=== PATIENT | male | born 1955 | race Two or more races ===

== ENCOUNTER 2022-07-06 08:48 | Day surgery (SDC) | payer MEDICARE, BC ==
[~2022-07-06] VITALS: Ht 162.6 cm; Wt 75.6 kg
[2022-07-06 09:10] VITALS: BP 139/86
[2022-07-06] MEDS ORDERED: albumin 25% 100mL bottle x 1 IV PRN (09:10)
[2022-07-06] MEDS ORDERED: normal saline 1000ml 1,000 ML IV PRN (09:15)
[2022-07-06] MEDS ORDERED: MULT-955 PO (09:23)
[2022-07-06] MEDS ORDERED: AMLO10TA13 PO (09:23)
[2022-07-06] MEDS ORDERED: LEVO25TA7 PO (09:23)
[2022-07-06 09:57] LABS: BASOPHILS % (AUTO) 0.1 % (0-1); EOSINOPHILS # (AUTO) 0.3 X10'3 (0-0.9); EOSINOPHILS % (AUTO) 3.6 % (0-6); HEMATOCRIT 40.6 % (42.0-52.0); HEMOGLOBIN 13.8 g/dl (14.0-17.9); LYMPHOCYTES # (AUTO) 1.1 X10'3 (1.1-4.8); LYMPHOCYTES % (AUTO) 13.5 % (21-51); MEAN CORPUSCULAR HEMOGLOBIN 29.1 PG (27.0-31.0); MEAN CORPUSCULAR HGB CONC 34.1 g/dL (33.0-36.5); MEAN CORPUSCULAR VOLUME 85.4 FL (78-98); MEAN PLATELET VOLUME 7.9 FL (7.4-10.4); MONOCYTES # (AUTO) 0.7 X10'3 (0-0.9); NEUTROPHILS % (AUTO) 73.8 % (42-75); PLATELET COUNT 333 X10'3 (140-440); RED BLOOD COUNT 4.76 X10'6 (4.70-6.10); RED CELL DISTRIBUTION WIDTH 13.6 % (11.5-14.5); WHITE BLOOD COUNT 8.1 X10'3 (4.5-11.0)
[2022-07-06 10:03] LABS: ALBUMIN 3.5 G/DL (3.4-5.0); ANION GAP 8 (8-16); BLOOD UREA NITROGEN 9 MG/DL (7-18); BUN/CREATININE RATIO 14.8 (5.4-32.0); CALCIUM 8.5 MG/DL (8.5-10.1); CHLORIDE 105 MMOL/L (99-107); CREATININE 0.61 MG/DL (0.60-1.10); GLUCOSE 105 MG/DL (70-104); POTASSIUM 3.9 MMOL/L (3.5-5.1); SODIUM 141 MMOL/L (135-145); TOTAL CARBON DIOXIDE 28.5 MMOL/L (24-32); eGFR > 90 ML/MIN
[2022-07-06] MEDS ORDERED: fentaNYL/PF 50MCG/1 ML 2ML syringe ONE (10:18)
[2022-07-06] MEDS ORDERED: midazolam 1 mg/ML 2ml injection ONE (10:18)
[2022-07-06] MEDS ORDERED: LIDOcaine 1% (10mg/ml) 2ml vial ONE (10:18)
[2022-07-06] MEDS ORDERED: LIDOcaine 1% 30ml preserv. free vial ONE (10:21)
[2022-07-06 10:27] LABS: PLATELET ESTIMATE NORMAL
[2022-07-06 10:28] LABS: GIANT PLATELET FEW
[2022-07-06 10:55] VITALS: BP 134/80
[2022-07-06 11:00] VITALS: BP 139/79
[2022-07-06 11:05] VITALS: BP 137/84
[2022-07-06 11:15] VITALS: BP 139/76
== END 2022-07-06 11:45 | disposition home or self-care (01) ==
LOC: SSTAY O 08:48
PROVIDERS: ATTEND Radiology Vascular & Interventional Radiology
DX: R22.32 Localized swelling, mass and lump, left upper limb (principal); D36.12 Benign neoplasm of peripheral nerves and autonomic nervous system, upper limb, including shoulder; R91.8 Other nonspecific abnormal finding of lung field; E27.8 Other specified disorders of adrenal gland; E03.9 Hypothyroidism, unspecified; E78.00 Pure hypercholesterolemia, unspecified; I10 Essential (primary) hypertension; Z79.899 Other long term (current) drug therapy; Z79.01 Long term (current) use of anticoagulants
CPT/HCPCS: 20206; 36415; 77012; 80048; 85025; 85610; 88305; 88341; 88342; J2250; J3010; J3490; J7030; 38505; 85008; 88173; A4615